=== PATIENT | female | born 1995 | race Caucasian/White ===

== ENCOUNTER 2019-07-23 07:33 | Outpatient (CLI) | payer BC ==
--- NOTE | 2019-07-23 08:44 | CT ---
CT OF ABDOMEN AND PELVIS PERFORMED WITH CONTRAST: HISTORY: Mid abdominal pain radiates to right lower quadrant. The lung bases are clear of any infiltrative pr ocess. FINDINGS: The liver and spleen show no focal abnormalities. The pancreas and gallbladder regions are normal. Right and left adrenal glands and right and left kidneys are normal in size. There is no significant paraaortic adenopathy. T here are small mesenteric lymph nodes which are nonspecific. CT OF PELVIS PERFORMED WITH INTRAVENOUS CONTRAST ENHANCEMENT: A small follicle is seen involving the adnexa. No evidence of any significant free fluid. The appen parul is normal in appearance. No pelvic lymphadenopathy or mass. No significant bony findings. IMPRESSION: Essentially unremarkable CT of the abdomen and pelvis. Borderline prominent mesenteric lymph nodes a re noted. POS: [facility]
== END 2019-07-23 07:34 | disposition home or self-care (01) ==
LOC: SCSCT 07:33
PROVIDERS: ATTEND Physician Assistant
DX: R10.31 Right lower quadrant pain (principal)
CPT/HCPCS: 74177

== ENCOUNTER 2020-05-10 12:48 | Outpatient (CLI) | payer OTHER ==
--- NOTE | 2020-05-10 13:36 | RAD ---
EXAM: XR Lumbar Spine Bending Min 4V PROVIDED CLINICAL HISTORY: Lumbar pain. COMPARISON: CT abdomen and pelvis on 07/23/2019 FINDINGS: Neutral lateral, and flexion extension views lumbar spine with lateral view lumbosacral junction are submitted. The vertebral body heights are within normal limits. There is suggestion of subtle pars defects at L5 which were not seen on prior CT abdomen and pelvis and 2019. This could potentially be artifactual, and oblique images are recommended. There is no subluxation or abnormal translational motion seen between flexion and extension views. IMPRESSION: Suggestion of bilateral pars defects at L5 which were not seen on study in 2019. There is no abnormal translational motion seen between flexion and extension views or evidence of subluxation. The suggested bilateral pars defects could be artifactual as the overlying iliac bones limiting adequate evaluation. Oblique images of the lumbar spine are recommended for further evaluation and to further evaluate the pars interarticularis at this level.
== END 2020-05-10 12:49 | disposition home or self-care (01) ==
LOC: RAD 12:48
PROVIDERS: ATTEND Nurse Practitioner Family
DX: M54.5 Low back pain (principal)
CPT/HCPCS: 72120

== ENCOUNTER 2020-05-20 10:47 | Outpatient (CLI) | payer OTHER ==
--- NOTE | 2020-05-20 13:17 | CT ---
Exam: Lumbar spine CT without contrast HISTORY: Spondylosis, lumbosacral. Chronic low back pain since 17. FINDINGS: Visualized solid organs are grossly unremarkable. No mesenteric mass, nephropathy, free air or free fluid. Presacral fat is preserved. Five lumbar type vertebra. Lumbar spine vertebral body heights are maintained. No fracture. No spondy lolisthesis or spondylolysis. Limited evaluation of the contents of the central spinal canal and neural foramina due to technique. T11-T12 and T12-L1: No significant central canal stenosis or significant neural foraminal narrowing. L1-L2: No significant central canal stenosis or significant neural foraminal narrowing. L2-L3: No significant central canal stenosis or significant neural foraminal narrowing. L3-L4: No significant central canal stenosis or significant neural foraminal narrowing. L4-L5: Broad-based disc bulge minimally flattens the thecal sac. No significant central canal stenosi s or significant neural foraminal narrowing. L5-S1: Broad-based disc bulge abuts the ventral thecal sac. Mild encroachment upon both subarticular zones. Mass effect and partial obscuration of bilateral traversing S1 nerve roots. Mild stenosis of the thecal sac. Mild to moderate bilateral foraminal narrowing predominantly due to disc material. IMPRESSION: 1. No fracture. 2. No spondylolisthesis or spondylolysis. 3. Mild to moderate bilateral neural foraminal narrowing at L5-S1. Transcribed Date/Time: 05/20/2020 1:47 PM
== END 2020-05-20 10:48 | disposition home or self-care (01) ==
LOC: SCSCT 10:47
PROVIDERS: ATTEND Specialist
DX: M51.17 Intervertebral disc disorders with radiculopathy, lumbosacral region (principal); M43.07 Spondylolysis, lumbosacral region; M48.07 Spinal stenosis, lumbosacral region
CPT/HCPCS: 36415; 72131; 82306; 82310

== ENCOUNTER 2020-09-18 16:31 | Emergency (ER) | payer OTHER ==
[2020-09-18] MEDS ORDERED: Ketorolac Tromethamine 30 MG/ML VIAL ONE (17:21)
[2020-09-18] MEDS ORDERED: Dexamethasone 10 MG/ML VIAL ONE (17:22)
[2020-09-18] MEDS ORDERED: Diazepam 10 MG/2 ML SYRINGE ONE (17:22)
[2020-09-18 18:19] LABS: BHCG - Serum Negative (NEGATIVE); Pregs Control Background? CLEAR/WHITE (CLR/WHITE); Pregs Control Bar Appear? YES (CONTROL BAR)
== END 2020-09-18 19:07 | disposition home or self-care (01) ==
LOC: ERS 16:31
DX: M54.5 Low back pain (principal); G89.29 Other chronic pain; Z79.899 Other long term (current) drug therapy
CPT/HCPCS: 36415; 84703; 96374; 96375; J1100; J1885; J3360

== ENCOUNTER 2020-09-27 14:56 | Outpatient (CLI) | payer OTHER ==
--- NOTE | 2020-09-27 16:02 | MRI ---
MRI Lumbar Spine Noncontrast: HISTORY: Intervertebral discs disorders with radiculopathy, lumbar region. COMPARISON: None FINDINGS: The visualized retroperitoneal structures demonstrate a normal appearance. Conus medullaris is normal in morphology and terminates at the L1 level. Paravertebral soft tissues have a normal appearance. L1-2: There is no disc bulge or disc herniation. Central spinal canal and neural foramina are patent. L2-3: There is no disc bulge or disc herniation. Central spinal canal and neural foramina are patent. L3-4: There is no disc bulge or disc herniation. Central spinal canal and neural foramina are patent. L4-5: There is no disc bulge or disc herniation. Central spinal canal and neural foramina are patent. L5-S1: Mild loss of intervertebral disc height. Mild disc osteophyte complex is present. Central spin al canal and left neural foramen are patent, but there is mild right-sided neural foraminal narrowing. IMPRESSION: Mild disc degenerative changes at the L5-S1 level, but there is no high-grade central canal or neural foraminal narrowing at this level. Central spinal canal and neural foramina at the remaining levels of the lumbar spine are patent.
== END 2020-09-27 14:57 | disposition home or self-care (01) ==
LOC: BICMRI 14:56
PROVIDERS: ATTEND Nurse Practitioner Family
DX: M51.16 Intervertebral disc disorders with radiculopathy, lumbar region (principal); M47.27 Other spondylosis with radiculopathy, lumbosacral region; M48.061 Spinal stenosis, lumbar region without neurogenic claudication
CPT/HCPCS: 72148

== ENCOUNTER 2022-10-12 11:23 | Outpatient (CLI) | payer BC | END 2022-10-12 11:24 | disposition home or self-care (01) | LOC: SCSMRI 11:23 | PROVIDERS: ATTEND Advanced Practice Midwife | DX: R51.9 Headache, unspecified (principal); R90.82 White matter disease, unspecified | CPT/HCPCS: 70553 ==